=== PATIENT | female | born 1975 | race African-American/Black ===

== ENCOUNTER → 2016-09-25 | Outpatient (CLI) | payer BC ==
[~2016-09-25] MED LIST: ACETAMINOPHEN PR; ALBUTEROL17 G1 IH; AMOXICILLIN PO; ANSAID100 MG PO; BACTRIM DS TABL1 TAB PO; BENTYL10 MG PO; BENZONATATE PO; DIFLUCAN PO; FLEXERIL PO; IBUPROFEN PO; LEXAPRO PO; LORTAB 7.5-5001 TAB PO; MEDROL PO; MIGRAINE MEDICATION; NAPROSYN125 MG/5 M PO; PEPTO-BISM525 MG/15 PO; PERCOCET5/325 PO; PHENERGAN PO; PREDNISONE PO; ROBAXIN500 MG PO; ROBITUSSIN COU118 ML PO; TUSSIONEX PENN473 ML PO; VIBRAMYCIN100 M1 PO; VITAMIN; ZITHROMAX PO; ZOFRAN ODT4 MG PO
--- NOTE | ~2016-09-25 | US5 ---
[facility] A Service of [facility] RADIOLOGY TEXT RESULTS PATIENT: KRISTEN MORIN LOCATION: [facility] : 75 UNIT #: [id number] AGE: [address]: Gera Hylton MD SEX: F ORDER DR: [id number] [address] [id number] O MR#: [id number] Acc #: [id number] NAME: KRISTEN MORIN : 1975 SEX: F STUDY DATE/TIME: 09/25/2016 8:19 UNIT: [facility] ROOM: STUDY DESCRIPTION: US Abdominal Complete Attending Physician: Gera Hylton M.D. Referring Physician: Gera Hylton M.D. Ordering Physician: Gera Hylton M.D. Primary Care Physician: Gera Hylton M.D. MEDICAL IMAGING REPORT This report is preliminary unless electronic signature is present. EXAM Abdominal ultrasound complete, 09/25/2016 HISTORY Abdomen pain for 6 months, diarrhea for 6 months. FINDINGS The liver demonstrates an increase in echotexture with attenuation of the ultrasound beam characteristic of fatty infiltration. No cystic or solid mass lesions were seen in the liver. The intra and extrahepatic bile ducts are not dilated. The gallbladder is normal with no evidence of cholelithiasis, wall thickening or pericholecystic fluid. The common duct measures 3.0 mm. The pancreas is normal. The spleen was poorly visualized. The visualized portions of the abdominal aorta and inferior vena cava are within normal limits. The kidneys are normal bilaterally. IMPRESSION 1. Fatty infiltration of the liver. 2. Normal gallbladder. 3. Poor visualization of the spleen. Dictated by... Norris Wesley M.D. THIS IS AN ELECTRONICALLY VERIFIED REPORT Norris Wesley M.D. at 09/26/2016 7:46 AM JoseR afael TD: 09/25/2016 10:38 JOB #: [id number] MEDICAL IMAGING REPORT [facility] A Service of [facility] RADIOLOGY TEXT RESULTS PATIENT: KRISTEN MORIN LOCATION: [facility] : 75 UNIT #: [id number] AGE: [address]: Gera Hylton MD SEX: F ORDER DR: Page 1 of 1
== END | disposition home or self-care (01) ==
LOC: SGUS 07:53
DX: R10.9 Unspecified abdominal pain (principal); R15.9 Full incontinence of feces; K76.0 Fatty (change of) liver, not elsewhere classified
CPT/HCPCS: 76700

== ENCOUNTER → 2016-10-22 | Outpatient (CLI) | payer BC ==
--- NOTE | ~2016-10-22 | PFT ---
[id number] [address] [facility]. [place], [place] [address] [id number] O MR#: [id number] NAME: KRISTEN MORIN ROOM: SEX: F STUDY DATE/TIME: 10/23/2016 : 1975 AGE: 41 STUDY DESCRIPTION: Attending Physician: Azael Donaldson M.D. Referring Physician: Azael Donaldson M.D. Primary Care Physician: Gera Hylton M.D. PULMONARY DIAGNOSTIC REPORT EXAM Pulmonary function test. FINDINGS Spirometry is unremarkable. There is no significant response to bronchodilators. FEV1 is 2.28 L, 86% of predicted. Flow volume loop is essentially normal. Lung volumes suggest the possibility of air trapping. ERV is reduced which can be seen in obesity. Diffusion capacity is moderately reduced. Isolated reduced diffusion capacity can be seen in early interstitial lung disease, pulmonary vascular disease, anemia, etc. and clinical correlation is needed. Dictated by... Eduard Pendleton M.D. CARMEN/owen TD: 10/23/2016 09:59 JOB #: [id number] PULMONARY DIAGNOSTIC REPORT Page 1 of 1
== END | disposition home or self-care (01) ==
LOC: CRC 13:23
DX: J45.909 Unspecified asthma, uncomplicated (principal)
CPT/HCPCS: 94060; 94726; 94729